=== PATIENT | female | born 1995 | race Caucasian/White ===

== ENCOUNTER → 2018-08-04 11:25 | Outpatient (CLI) | payer BC, SELFPAY ==
[2018-08-04 12:33] LABS: Absolute Lymphocyte Count 2.09 X10^3/ul (0.83-4.51); Absolute Neutrophil Count 4.5 X10^3/uL (2.0-7.7); Basophil# 0.03 X10^3/uL; Basophil% 0.4 % (0-1); Eosinophil# 0.09 X10^3/uL; Eosinophils% 1.2 % (0-5); Hematocrit 41.7 % (37-47); Hemoglobin 13.9 g/dl (12.0-15.0); Lymphocyte # 2.09 X10^3/ul (4.0); Lymphocyte % 28.2 % (19-41); Mean Corp Hgb Conc 33.3 g/gl (32-36); Mean Corpuscular Hgb 28.6 pg (27.0-32.0); Mean Corpuscular Volume 85.8 fL (81-99); Mean Platelet Vol. 9.6 fl (6.2-12.0); Monocyte# 0.68 X10^3/uL; Monocyte% 9.2 % (0-10); Neutrophil # 4.48 X10^3/uL (2.7-7.7); Neutrophil % 60.5 % (47-70); Platelet Count 413 K/mm3 (150-450); RBC Distribution Width CV 12.7 % (11.6-14.6); RBC Distribution Width SD 38.8 fl (35.1-43.9); Red Blood Count 4.86 M/mm3 (4.2-5.4); White Blood Count 7.4 K/mm3 (4.4-11.0)
[2018-08-04 12:34] LABS: POSITIVE COUNT NO; POSITIVE DIFFERENTIAL NO; POSITIVE MORPHOLOGY NO
[2018-08-04 12:49] LABS: Anion Gap 5 (5-15); BUN 13 mg/dL (7-18); BUN/Creat Ratio 16.2 RATIO (10-20); Calcium,Total 9.1 mg/dL (8.5-10.1); Chloride 103 mmol/L (98-107); EST Glomerular Filtration Rate 93 mL/min (>60); Est Glom Filt Rate - Afr Amer 112 mL/min (>60); Glucose 106 mg/dL (74-106); Potassium 3.9 mmol/L (3.5-5.1); Sodium Level 136 mmol/L (136-145)
== END ==
PROVIDERS: Visit Provider Family Medicine Geriatric Medicine
DX: I10 Essential (primary) hypertension (principal)
CPT/HCPCS: 36415; 80048; 85025

== ENCOUNTER → 2018-08-08 08:43 | Outpatient (CLI) | payer BC, SELFPAY ==
--- NOTE | 2018-08-08 08:48 | RDU_ITS ---
Reason For Study: HYPERTENSION Right Renal Artery Left Renal Artery Right renal artery ostium Left renal artery ostium 173.3/63.5 149.8/43.9 RSV/EDV. PSV/EDV. Right renal artery proximal Left renal artery proximal PSV/EDV 161.4/51.4 PSV/EDV. 169.4/47.8 . Right renal artery mid 145.3/38.9 Left renal artery mid 152.7/68.6 PSV/EDV. PSV/EDV . Right Renal Parenchyma Left renal artery distal 142.2/49.0 Upper Pole Medula 43.0/12.3 PSV/EDV. PSV/EDV. Left Renal Parenchyma Right upper pole medulla EDR .29 . Left upper pole medulla 69.1/31.8 Right upper pole medulla R.I. .71 . PSV/EDV . Upper [place] Cortx 33.1/12.3 PSV/EDV. Left upper pole medulla EDR .46 . Right upper pole cortex EDR .37 . Left upper pole medulla R.I. .54 . Right upper pole cortex R.I. .63 . UP Cortex 43.0/16.7 PSV/EDV. Right lower Pole medulla 40.8/15.6 Left upper pole cortex EDR .39 . PSV/EDV . Left upper pole cortex R.I. .61 . Right lower pole medulla EDR .38 . Left lower Pole medulla 54.0/20.0 Right lower pole medulla R.I. .62 . PSV/EDV . Lower Pole Cortex 48.5/18.9 Left lower pole medulla EDR .37 . PSV/EDV. Left lower pole medulla R.I. .63 . Right lower pole cortex EDR .39 . Lower Pole Cortx 43.0/16.7 PSV/EDV. Right lower pole cortex R.I. .61 . Left lower pole cortex EDR .39 . Right Renal Hilar Left Renal Hilar Right Hilar avg 94.1/40.8 PSV/EDV. LT Hilar avg 123.2/35.9 PSV/EDV . Right hilar acceleration time 20 Left hilar acceleration time 50 m/sec. m/sec. Right Renal Dimensions Left Renal Dimensions Right kidney size 9.6 cm . Left kidney size 9.6 cm . Right cortical dimension 1.5 cm . Left cortical dimension 1.5 cm . Aorta Proximal abdominal aorta 1.1 X 1.1 cm . Distal abdominal aorta 1.0 X 1.0 cm . Proximal abdominal aorta peak systolic velocity is 177.4 cm/sec . Distal abdominal aorta peak systolic velocity is 228.4 cm/sec . Interpretation Summary Dimensions of the intra-abdominal aorta appear normal, without evidence of aneurysmal dilatation. Renal artery velocities are bilaterally normal. Acceleration times are normal bilaterally. There is no evidence of hemodynamically significant renal artery stenosis on either side. Renovascular resistance appears to be bilaterally normal . Cortical dimensions are bilaterally normal. Kidneys appear normal in size bilaterally. Ordering Physician: Ralph Thompson Referring Physician: Ralph Thompson Chi Performed By: Fide Mcdonnell RVT
== END ==
PROVIDERS: Family Provider Family Medicine Geriatric Medicine; PCP Family Medicine Geriatric Medicine; Referring Provider Family Medicine Geriatric Medicine; Visit Provider Family Medicine Geriatric Medicine
DX: I70.1 Atherosclerosis of renal artery (principal); N20.0 Calculus of kidney; I10 Essential (primary) hypertension
CPT/HCPCS: 93975

== ENCOUNTER → 2018-08-09 | Outpatient (CLI) | payer BC, SELFPAY ==
--- NOTE | 2018-08-09 12:54 | US_ITS ---
STUDY: RENAL ULTRASOUND - COMPLETE REASON FOR EXAM: Female, 23 years old. Hypertension TECHNIQUE: Ultrasound evaluation of the kidneys was performed with real-time and static mederos-scale imaging. COMPARISON: Renal artery duplex 08/08/2018. FINDINGS: RIGHT KIDNEY: 9.7 x 5.3 x 3.8 cm. Normal cortical thickness 1.6 cm, normal cortical echotexture. Right ureteral jet is observed within the urinary bladder. LEFT KIDNEY: 10.8 x 4.5 x 5.5 cm. Normal cortical thickness 1.4 cm, normal cortical echotexture. Left ureteral jet is visualized within the urinary bladder. BLADDER: Distended volume 53 mL. Normal in caliber, contour and wall thickness. US/Kidney and Bladder IMPRESSION: Normal ultrasound of the kidneys and urinary bladder. Electronically Signed: Mathew Solares MD at 15:15 EDT Tel , Service support ,
== END | disposition home or self-care (01) ==
LOC: US 12:54
PROVIDERS: Family Provider Family Medicine Geriatric Medicine; PCP Family Medicine Geriatric Medicine; Referring Provider Family Medicine Geriatric Medicine; Visit Provider Family Medicine Geriatric Medicine
DX: I10 Essential (primary) hypertension (principal); I70.1 Atherosclerosis of renal artery; N20.0 Calculus of kidney
CPT/HCPCS: 76770

== ENCOUNTER → 2018-10-09 11:54 | Outpatient (CLI) | payer BC, SELFPAY | PROVIDERS: Family Provider Family Medicine Geriatric Medicine; PCP Family Medicine Geriatric Medicine; Visit Provider Family Medicine Geriatric Medicine | DX: N39.0 Urinary tract infection, site not specified (principal) | CPT/HCPCS: 87077; 87086; 87088; 87186 ==

== ENCOUNTER → 2018-10-24 | Outpatient (CLI) | payer BC, SELFPAY ==
[2018-10-24 14:47] LABS: hCG Titer Quant., Serum 6119 mIU/mL (1-3)
== END | disposition home or self-care (01) ==
LOC: POLAB3 13:23
PROVIDERS: Family Provider Family Medicine Geriatric Medicine; PCP Family Medicine Geriatric Medicine; Visit Provider Family Medicine Geriatric Medicine
DX: N93.8 Other specified abnormal uterine and vaginal bleeding (principal)
CPT/HCPCS: 36415; 84702

== ENCOUNTER → 2018-11-03 17:14 | Outpatient (CLI) | payer BC, SELFPAY ==
[2018-11-03 18:50] LABS: Chlamydia Trachomatis by PCR Negative (Negative); Neisserai gonorrhoeae by PCR Negative (Negative); Probe Check PASS; Sample Adequacy Control PASS; Specimen Processing Control PASS
[2018-11-08 14:45] LABS: HPV Reflexed? NOT INDICATED
== END ==
PROVIDERS: Family Provider Family Medicine Geriatric Medicine; PCP Family Medicine Geriatric Medicine; Referring Provider Obstetrics & Gynecology; Visit Provider Obstetrics & Gynecology
DX: Z12.4 Encounter for screening for malignant neoplasm of cervix (principal); Z11.3 Encounter for screening for infections with a predominantly sexual mode of transmission
CPT/HCPCS: 87491; 87591; 87624; 88175; G0145

== ENCOUNTER → 2018-11-15 | Outpatient (CLI) | payer BC, SELFPAY ==
[2018-11-15 17:24] LABS: Absolute Lymphocyte Count 2.57 X10^3/uL (0.83-4.51); Absolute Neutrophil Count 7.2 X10^3/uL (2.0-7.7); Basophil# 0.04 X10^3/uL; Basophil% 0.4 % (0-1); Eosinophils% 0.9 % (0-5); Lymphocyte # 2.57 X10^3/ul (4.0); Lymphocyte % 23.4 % (19-41); Mean Corp Hgb Conc 34.1 g/dL (32-36); Mean Corpuscular Hgb 29.9 pg (27.0-32.0); Mean Corpuscular Volume 87.6 fL (81-99); Mean Platelet Vol. 9.4 fl (6.2-12.0); Monocyte# 0.95 X10^3/uL; Monocyte% 8.7 % (0-10); NRBC Flagged by Analyzer 0 % (0-5); Neutrophil # 7.23 X10^3/uL (2.7-7.7); Neutrophil % 65.9 % (47-70); Platelet Count 370 K/mm3 (150-450); RBC Distribution Width CV 12.9 % (11.6-14.6); RBC Distribution Width SD 41.2 fl (35.1-43.9); Red Blood Count 4.68 M/mm3 (4.2-5.4)
[2018-11-15 17:31] LABS: Color, Urine Yellow (Yellow); Glucose, Dipstick Normal (Normal); Ketone-Dipstick Negative (Negative); Nitrite-Dipstick Negative (Negative); Occult Blood-Urine Negative /ul (Negative); Protein-Dipstick Negative (Negative); Urine Bilirubin Dipstick Negative (Negative); Urine Clarity Clear (Clear)
[2018-11-15 17:38] LABS: Amphetamine Urine VISTA NEGATIVE (<1000 ng/mL); Barbiturate Urine VISTA NEGATIVE (< 200 ng/mL); Benzodiazepine Urine VISTA NEGATIVE (< 200 ng/mL); Cocaine Urine VISTA NEGATIVE (< 300 ng/mL); Ecstacy Urine VISTA NEGATIVE (< 500 ng/mL); Methadone Urine VISTA NEGATIVE (< 300 ng/mL); PCP Urine VISTA NEGATIVE (< 25 ng/mL); THC Urine VISTA NEGATIVE (< 50 ng/mL); Vista UDS pH Range 6
[2018-11-15 17:54] LABS: Thyroid Stim Hormone (TSH) 1.46 uIU/mL (0.358-3.74)
[2018-11-15 18:52] LABS: Leukocyte Esterase-Dipstick Negative /ul (Negative); Specific Gravity, Urine 1.015 (1.002-1.030); Urine Urobilinogen 1 mg/dl (Normal)
[2018-11-16 11:48] LABS: HIV - WCH Non-Reactive (Nonreactive); Hepatitis B Surface Antigen Non-Reactive (Nonreactive); Hepatitis C Antibody Non-Reactive (Nonreactive); Rubella IgG 7.2 IU/mL
[2018-11-17 04:46] LABS: Prenatal RPR NONREACTIVE (NONREACTIVE)
== END | disposition home or self-care (01) ==
LOC: WOBLAB 16:33
PROVIDERS: Visit Provider Obstetrics & Gynecology
DX: Z34.81 Encounter for supervision of other normal pregnancy, first trimester (principal)
CPT/HCPCS: 36415; 80307; 81002; 84443; 85025; 86703; 86762; 86803; 87340

== ENCOUNTER → 2019-03-28 08:46 | Outpatient (CLI) | payer BC, SELFPAY ==
[2019-03-28 09:23] LABS: Glucose Challenge Gest 1H 50g 162 mg/dL (70-140)
[2019-03-28 09:25] LABS: Hematocrit 34.2 % (37-47); Hemoglobin 11.4 g/dL (12.0-15.0); Mean Corp Hgb Conc 33.3 g/dL (32-36); Mean Corpuscular Hgb 29.7 pg (27.0-32.0); Mean Corpuscular Volume 89.1 fL (81-99); Mean Platelet Vol. 9.5 fl (6.2-12.0); Platelet Count 350 K/mm3 (150-450); RBC Distribution Width CV 12.5 % (11.6-14.6); RBC Distribution Width SD 40.7 fl (35.1-43.9); Red Blood Count 3.84 M/mm3 (4.2-5.4)
== END ==
PROVIDERS: Visit Provider Obstetrics & Gynecology
DX: Z34.83 Encounter for supervision of other normal pregnancy, third trimester (principal)
CPT/HCPCS: 36415; 82950; 85027

== ENCOUNTER → 2019-04-02 06:54 | Outpatient (CLI) | payer BC, SELFPAY ==
[2019-04-02 08:34] LABS: Glucose GTT-Gestational 1 Hr 197 mg/dL (<190)
[2019-04-02 08:36] LABS: Glucose GTT-Gestation. Fasting 97 mg/dL (<105)
[2019-04-02 09:58] LABS: Glucose GTT-Gestational 2 Hr 156 mg/dL (<165)
[2019-04-02 11:40] LABS: Glucose GTT-Gestational 3 Hr 119 L (<145)
== END ==
PROVIDERS: Family Provider Family Medicine Geriatric Medicine; PCP Family Medicine Geriatric Medicine; Referring Provider Obstetrics & Gynecology; Visit Provider Obstetrics & Gynecology
DX: O24.913 Unspecified diabetes mellitus in pregnancy, third trimester (principal)
CPT/HCPCS: 36415; 82951; 82952

== ENCOUNTER → 2019-06-01 | Outpatient (CLI) | payer BC, SELFPAY | END | disposition home or self-care (01) | LOC: LABSPEC 15:55 | PROVIDERS: PCP Family Medicine Geriatric Medicine; Referring Provider Obstetrics & Gynecology; Visit Provider Obstetrics & Gynecology | DX: Z36.85 Encounter for antenatal screening for Streptococcus B (principal) | CPT/HCPCS: 87081 ==

== ENCOUNTER → 2019-06-12 10:21 | Outpatient (CLI) | payer BC, SELFPAY ==
[2019-06-12 10:50] LABS: Hemoglobin 11.8 g/dL (12.0-15.0); Mean Corp Hgb Conc 31.9 g/dL (32-36); Mean Corpuscular Hgb 26.6 pg (27.0-32.0); Mean Corpuscular Volume 83.3 fL (81-99); Mean Platelet Vol. 9.8 fl (6.2-12.0); Platelet Count 300 K/mm3 (150-450); RBC Distribution Width CV 14.2 % (11.6-14.6); RBC Distribution Width SD 42.2 fl (35.1-43.9); Red Blood Count 4.44 M/mm3 (4.2-5.4); White Blood Count 7.6 K/mm3 (4.4-11.0)
[2019-06-12 10:59] LABS: Prothrombin Time (Protime)PT. 12.5 SECONDS (11.7-14.9)
[2019-06-12 11:00] LABS: Partial Thromboplast Time 27.6 Seconds (24.1-36.2)
[2019-06-12 11:16] LABS: Protein, Urine (Random) 38.2 mg/dL (<11.9)
[2019-06-12 11:21] LABS: AST(SGOT) 20 U/L (15-37); Alanine Aminotransfer ALT/SGPT 13 U/L (13-56); Creatinine, Serum 0.76 mg/dL (0.55-1.02); EST Glomerular Filtration Rate 98 mL/min (>60); Est Glom Filt Rate - Afr Amer 118 mL/min (>60); Uric Acid 4.2 mg/dL (2.6-6.0)
== END ==
PROVIDERS: PCP Family Medicine Geriatric Medicine; Visit Provider Obstetrics & Gynecology
DX: O16.3 Unspecified maternal hypertension, third trimester (principal); Z3A.00 Weeks of gestation of pregnancy not specified
CPT/HCPCS: 36415; 82565; 82570; 84156; 84450; 84460; 84550; 85027; 85610; 85730

== ENCOUNTER 2019-06-12 18:50 | Inpatient (IN) | payer BC, SELFPAY ==
[2019-06-12] VITALS (14 sets, daily range): BP systolic 134–182; BP diastolic 68–100; PULSE 61–80; TEMP 97.8–98.4; O2SAT 95–98; BMI 29.9
[2019-06-12] MEDS: Lactated Ringers 1,000 ML 50 ML IV (20:10)
[2019-06-12 20:50] LABS: Absolute Lymphocyte Count 2.51 X10^3/uL (0.83-4.51); Absolute Neutrophil Count 5.9 X10^3/uL (2.0-7.7); Basophil# 0.01 X10^3/uL; Basophil% 0.1 % (0-1); Eosinophil# 0.06 X10^3/uL; Eosinophils% 0.6 % (0-5); Hematocrit 34.9 % (37-47); Hemoglobin 11.2 g/dL (12.0-15.0); Lymphocyte # 2.51 X10^3/ul (4.0); Lymphocyte % 26.8 % (19-41); Mean Corp Hgb Conc 32.1 g/dL (32-36); Mean Corpuscular Hgb 26.5 pg (27.0-32.0); Mean Corpuscular Volume 82.7 fL (81-99); Mean Platelet Vol. 10.2 fl (6.2-12.0); Monocyte# 0.78 X10^3/uL; Monocyte% 8.3 % (0-10); NRBC Flagged by Analyzer 0 % (0-5); Neutrophil # 5.93 X10^3/uL (2.7-7.7); Neutrophil % 63.6 % (47-70); Platelet Count 311 K/mm3 (150-450); RBC Distribution Width CV 14.3 % (11.6-14.6); RBC Distribution Width SD 42.5 fl (35.1-43.9); Red Blood Count 4.22 M/mm3 (4.2-5.4); White Blood Count 9.4 K/mm3 (4.4-11.0)
[2019-06-12] MEDS: Oxytocin 30 units/NS 500 ml 30 UNITS/500 ML IV.SOLN IV (21:11)
--- NOTE | 2019-06-12 21:41 | PCM.HP.OB ---
- Problem List (1) 38 weeks gestation of Status: Acute (2) Chronic hypertension Status: Chronic History Date of Admission: 06/12/19 Final ANDI: 06/24/19 Final ANDI Source: US <20 weeks Gestational age: 38 Weeks and 2 Days History of this : This is a 24 year-old, G [], P [], at 38 weeks gestational age. Medical History: Medical History (Last Updated 06/12/19 @ 21:[address] Kristie Mata MD) Chronic hypertension I10 Surgical History: Surgical History (Last Updated 06/12/19 @ 21:[address] Kristie Mata MD) [place] teeth extracted K08.409 Allergies lisinopril Allergy (Verified 06/12/19 19:45) Other causes her heart to race Home Medications: Home Medications Labetalol [Trandate] 100 mg PO BID 06/12/19 Pnv No.103/Folic/Om3s/Fish Oil [ Gummies] 2 ea PO DAILY 06/12/19 Smoking Status: Never smoker Alcohol: None Number of Fetus(es): 1 NST - FHR Rate Baby A Baseline: 135 Variability:: Moderate Accelerations:: 15 x 15 Decelerations:: None NST Reactive:: Yes FHR Category:: Category I Uterine Activity:: 2/10 History Past Pregnancies: Past Pregnancies Delivery Date Name GA/ Weeks Outcome Route Wt Infant Sex Labor Length Anesthesia Delivery Location Provider FOB Labs: Mom's Problem List Problem Status Onset Code 38 weeks gestation of Acute Z3A.38 Chronic hypertension Chronic I10 Mom's Labs & Results 06/12/19 06/12/19 20:10 20:10 WBC 9.4 RBC 4.22 Hgb 11.2 L Hct 34.9 L MCV 82.7 MCH 26.5 L MCHC 32.1 RDW Std Deviation 42.5 RDW Coeff of Sofia 14.3 Plt Count 311 MPV 10.2 Immature Gran % (Auto) 0.600 Neut % (Auto) 63.6 Lymph % (Auto) 26.8 [place] % (Auto) 8.3 Eos % (Auto) 0.6 Baso % (Auto) 0.1 Absolute Neuts (auto) 5.9 Absolute Lymphs (auto) 2.51 Nucleated RBC % 0 Blood Type O POSITIVE Antibody Screen NEGATIVE Course Did the patient receive Yes care? Labs Blood Type: O RH: POSITIVE RPR/VDRL/Syphilis Nonreactive Rubella status Equivocal HbSAg Negative Date Done: 11/15/18 Chlamydia Negative Gonorrhea Negative HIV/AIDS Non-Reactive Group B Strep: Negative Current Obstetrical History Gestational Diabetes No Incompetent Cervix No Infertility No IUGR No Macrosomia No Hypertension/Pre-eclampsia Yes: chronic htn Placenta Previa/Abruption No PTL/PROM No Uterine anomaly No Oligohydramnios No Polyhydramnios No Multiple gestation No Past Medical History Asthma No Diabetes No Hypertension Yes: chronic htn Heart disease No Mitral valve prolapse No Neurologic/Seizure disorder/ No Migraines Kidney disease No Liver disease No Varicosities No Clotting disorders/Hx of DVT No Thyroid Dysfunction No Other medical diseases No Psychiatric disorders No Major trauma No Abnormal PAP smear No Sleep apnea No Mammogram in the last 2 years No Social History Marital Status: Alleged father jian santos Hx Smoking No Smoking Status Never smoker Expected Delivery Method: Spontaneous Vaginal Number of Visits: 20 Review of Systems Eyes: Denies: Vision Change HEENT: Denies: Head Aches Cardiovascular: Denies: Chest Pain Respiratory: Denies: Shortness of Breath Gastrointestinal: Denies: Abdominal Pain, Nausea, Vomiting Gynecological: Denies: Vaginal bleeding Physical Exam Vitals: avss General: Alert, Oriented x3, Cooperative, No apparent distress HEENT: Atraumatic, Normocephalic Cardiovascular: Regular Rhythm Lungs: Clear to auscultation, Normal air movement Abdomen: Soft, Non Tender, Non-Distended, Gravid Neurological: Neuro grossly intact [employer] REPA[employer]ER: Normal external genitalia Estimated gestational size: Appropriate for gestational size Presentation: Cephalic Cervix Dilation (cm): 3 Station: -2 Effacement (%): 75 Assessment/Plan All Active Problems (Last Updated 06/12/19 @ 21:[address] Kristie Mata MD) 38 weeks gestation of (Acute) This is a 24 year-old, G [1], P [], at 38 2/7 weeks gestational age. hx chronic hypertension Start pitocin for IOL Consents signs and reviewed
[2019-06-12] MEDS: Labetalol 100 MG Tablet PO (21:51)
[2019-06-12] MEDS: Mag Hydrox/Al Hydrox/Simeth 30 ML UDC PO (22:00)
[2019-06-13] VITALS (24 sets, daily range): BP systolic 118–156; BP diastolic 63–91; PULSE 35–177; RESP 16–18; TEMP 36.6–36.8; O2SAT 83–100
[2019-06-13] MEDS: fentaNYL 100 MCG/2 ML Ampul IV (02:07)
[2019-06-13] MEDS: Lactated Ringers 500 ML 999 ML IV (02:33)
--- NOTE | 2019-06-13 04:10 | PCM.PN.BLA ---
Progress Note LABOR PROGRESS NOTE C/o painful contractions. AVSS gen - nad, aao x3 FHR 130, moderate variability, + acceleations, + variable deceleration TOCO 3-4/10 min SVE 7/90/-2 A/P: 24yo G1 @ 38 3/7wga, hx chronic hypertension, Cat II FHR -Amniotomy performed with clear fluid -Maternal and statuses reassuring
[2019-06-13] MEDS: Oxytocin 30 units/NS 500 ml 30 UNITS/500 ML IV.SOLN 334 UNITS IV (04:35)
--- NOTE | 2019-06-13 05:18 | PLAC_PTH ---
PATIENT: ROMY HOLMAN LOC: WP U#:[id number] AGE/SX: 24/F ROOM: WP008 RE06/12/[address]: Dr. Kristie Joy MD : 1995 BED: 1 DIS: 06/14/2019 SPEC #: [id number] RECD: 06/13/19 06:09 STATUS: FAREED REDylan #: [id number] ITZ: 06/13/19 05:[address]: Kristie Chapa DEPT: SURGICAL PATHOLOGY RECD BY: Augustine Gaviria ENTERED: 06/13/19 09:18 SP TYPE: PLACENTA OTHR DR: MD Dr. Ralph Fisher Chi, MD Tissues: Placenta, NOS Procedures: Surgery Specimen Level V HEADER OPERATION: Vaginal delivery PRE-OP DIAGNOSIS: Chronic hypertension, TISSUE SUBMITTED: Placenta MICROSCOPIC DIAGNOSIS Placenta: Placental disc - third trimester placenta (427 gm). -?Focal area of intraparenchymal hemorrhage (1.5 cm in greatest dimension). -?Focal area of increased intervillous and perivillous fibrin deposition and intraparenchymal hemorrhage (1 cm in greatest dimension). Membranes - no pathologic diagnosis. Umbilical cord - three blood vessels and no pathologic diagnosis. SJ:keshia 06/15/19 MICROSCOPIC DESCRIPTION Slides are reviewed. GROSS DESCRIPTION SPECIMEN: PLACENTA / CLINICAL INFORMATION: A. Weight: 2.874 kg B. Gestational Age: 38 weeks C. Sex: Female PLACENTAL WEIGHT (POST FIXATION): 427 gm PLACENTAL DIMENSIONS: 16 x 15 x 3 cm PLACENTAL SHAPE: Usual ovoid PLACENTAL WEIGHT FOR GESTATIONAL AGE: Within 10-99th percentile MEMBRANES - Present A. Insertion: Marginal B. Site of rupture from edge: 7 cm from edge of placental disc C. Color of membrane: Rivas[place]pena D. Abnormalities: None UMBILICAL CORD - Present A. Color: Rivas[place]pena B. Insertion: Central C. Length: 29 cm D. Diameter: 1 cm E. Number of vessels: Three F. Abnormalities: Increased spiraling is noted. PLACENTAL DISC - Present A. Color of surface: R[place] B. surface abnormalities: None C. Maternal cotyledons: Intact with minimal tears D. Attached retro placental clot: No clot E. Cut surface: Dark red and spongy F. Lesions: Sections reveal two rivas, indurated areas measuring 1 and 1.5 cm in greatest dimension. G. Separate clot: Multiple fragments of blood clot weighing in aggregate 47 gm and measuring 8 x 7 x 3?cm. SECTIONS SUBMITTED: 1. Membrane roll 2. Cord, maternal end 3. Cord, end 4. Placental disc, and maternal surfaces 5. Placental disc, and maternal surfaces, larger lesion 6. Placental disc, and maternal surfaces, smaller lesion SJ:rg 06/15/19 TC:5 CPT: 02923
--- NOTE | 2019-06-13 05:20 | PCM.OPRPT ---
Problem List (1) 38 weeks gestation of Status: Acute (2) Chronic hypertension Status: Chronic Vaginal Delivery Maternal Presentation: Medically Indicated Induction Method of Induction: Pitocin, Amniotomy Amniotic Membrane Rupture Type: Artificial Rupture of Membrane time: 06/13/19 0400h Amniotic Fluid Description: Clear Final ANDI: 06/24/19 Final ANDI Source: US <20 weeks Gestational age: 38 Weeks and 3 Days Date of Procedure: 06/13/19 Pre-Operative Diagnosis: 38 3/7wga, chronic hypertension Post-Operative Diagnosis: 38 3/7wga, chronic hypertension Surgery/ Procedure Performed: Spontaneous Vaginal Delivery Type of Anesthesia: None Description of Procedure: Patient was FD/+ 3 station. She pushed to deliver a female in RONEY. The mouth and nares were bulb suctioned at the perineum. The was placed on the maternal abdomen and further attended by nursery personnel. The cord was doubly clamped and cut at approximately 4 minutes of life. Cord blood specimen was obtained. The placenta delivered spontaneously and appeared intact on inspection. 10cc of 1% lidocaine injected locally. A first degree perineal laceration was repaired with 3-0 Vicryl Rapide. Fundus was firm at umbilicus and there was excellent hemostasis. Sponge and needle counts correct x 2. Presentation: Vertex Placental Delivery Description: Spontaneous Placenta Disposition: Sent to Pathology Cord Vessel Description: 3 Vessels Nuchal Cord Compression: Without compression Cord Entanglement: None Estimated Blood Loss: 200 A gender: Female (1 minute): 8 (5 minute): 9 Laceration: Midline, 1st degree Medications given after delivery: IV Pitocin Complications: None
--- NOTE | 2019-06-13 05:37 | DCINST_ITS ---
<EsperanzaKristie - Last Filed: 06/13/19 05:37> Discharge Diet: No Restrictions Discharge Activity: Return to Normal Activity, May Shower, May Take a Tub Bath May resume sexual activity in: 4-6 weeks Lifting Restrictions: 10-20 lb Cleanse incision/area with: Soap & Water Instructions: Controlling High Blood Pressure Additional Instructions: If you experience any of the following, contact your healthcare provider. * Bleeding that soaks a pad every hour for 2 hours * Fever 100.4 or higher * Unrelieved incision or abdominal pain * Swelling, redness, discharge or bleeding from your incision or episiotomy site * Your incision begins to separate * Problems urinating (including inability to urinate or burning while urinating). * Visual changes * Severe headache * Flu-like symptoms * Pain or redness in one of both of your breasts * Pain, warmth, tenderness or swelling in your legs, especially the calf area * Frequent nausea and vomiting * Symptoms of depression or anxiety If you experience any of the following, call 911 or go to the nearest Emergency Room. * Chest pain * Problems breathing * Seizure activity * Partial or complete paralysis of a body part, slurred speech, weakness or drooping of the face, or a sudden inability to walk or hold your balance Allergies/Adverse Reactions: Allergies lisinopril Allergy (Verified 06/12/19 19:45) Other causes her heart to race Medications to take at Discharge Labetalol [Trandate] 100 mg PO BID 06/12/19 Pnv No.103/Folic/Om3s/Fish Oil [ Gummies] 2 ea PO DAILY 06/12/19 Please Follow Up With: Ahmet Marquez MD - BP check When: 7-10 days Primary Care Physician: Ralph Thompson Chi, MD [Primary Care Provider] - Test Results: Test results from this visit will be discussed in further detail at your follow- up appointment, if applicable. <Janina Oscar - Last Filed: 06/14/19 09:10> Additional Instructions: If you experience any of the following, contact your healthcare provider. * Bleeding that soaks a pad every hour for 2 hours * Fever 100.4 or higher * Unrelieved incision or abdominal pain * Swelling, redness, discharge or bleeding from your incision or episiotomy site * Your incision begins to separate * Problems urinating (including inability to urinate or burning while urinating). * Visual changes * Severe headache * Flu-like symptoms * Pain or redness in one of both of your breasts * Pain, warmth, tenderness or swelling in your legs, especially the calf area * Frequent nausea and vomiting * Symptoms of depression or anxiety If you experience any of the following, call 911 or go to the nearest Emergency Room. * Chest pain * Problems breathing * Seizure activity * Partial or complete paralysis of a body part, slurred speech, weakness or drooping of the face, or a sudden inability to walk or hold your balance Test Results: Test results from this visit will be discussed in further detail at your follow- up appointment, if applicable.
[2019-06-13 07:03] LABS: Pathology Specimen OB SEE PATHOLOGY REPORT
[2019-06-13] MEDS: 0.9% Saline Lock 10 ML Syringe IV (07:30)
[2019-06-13] MEDS: Ibuprofen 600 MG Tablet PO ×2 (08:23→21:47)
[2019-06-13] MEDS: Labetalol 100 MG Tablet PO ×2 (12:11→21:47)
[2019-06-14 00:20] VITALS: BP 128/61; PULSE 93; RESP 18; TEMP 37.1
[2019-06-14 04:45] VITALS: BP 131/77; PULSE 68; RESP 18; TEMP 36.7
[2019-06-14 08:16] VITALS: BP 122/68; PULSE 69; RESP 18; TEMP 36.7
--- NOTE | 2019-06-14 08:19 | NURSING ---
mild edema of perineum. Encouraged anti inflammatories
[2019-06-14] MEDS: Ibuprofen 600 MG Tablet PO (08:24)
[2019-06-14] MEDS: Senna/Docusate Sodium 1 Tablet PO (08:24)
--- NOTE | 2019-06-14 09:10 | PCM.PN.BLA ---
Progress Note S: Feeling well. Motrin is helping with mild cramps. daughter well with no concerns. Wants to discharge today. O: AVSS, BP 128/68 stable Fundus u/1, firm, midline Lochia rubra moderate, denies clots A: Post vaginal delivery day #1 female Normal course P: To discharge home today Call if any problems with To return to the office in 7-10 days for BP check. To check BP at home QD and call if elevated pressures or symptomatic Normal appt in 6 weeks STROKE Vital Signs/Narrative: Vital Signs Temp Pulse Resp BP 06/14/19 08:16 98.0 F 69 18 122/68 H
[2019-06-14] MEDS: Labetalol 100 MG Tablet PO (10:51)
[2019-06-14] MEDS: Prenatal Vits Tablet 1 TABLET PO (10:51)
[2019-06-14 14:00] VITALS: BP 130/79; PULSE 96; RESP 18; TEMP 36.7
== END 2019-06-14 14:00 | disposition home or self-care (01) | DRG 806 ==
PROVIDERS: Admitting Provider Obstetrics & Gynecology; PCP Family Medicine Geriatric Medicine; Referring Provider Obstetrics & Gynecology; Visit Provider Obstetrics & Gynecology
DX: O76 Abnormality in fetal heart rate and rhythm complicating labor and delivery (principal); O10.92 Unspecified pre-existing hypertension complicating childbirth; Z37.0 Single live birth; O36.0130 Maternal care for anti-D [Rh] antibodies, third trimester, not applicable or unspecified; O70.0 First degree perineal laceration during delivery; Z3A.38 38 weeks gestation of pregnancy
CPT/HCPCS: 59025; 59050; 76815; 85025; 86850; 86900; 86901; 88307; 99218; J7120; A4216; G0378

== ENCOUNTER → 2019-08-06 17:01 | Outpatient (CLI) | payer BC, SELFPAY ==
[2019-06-12 19:40] VITALS: BMI 29.9
[2019-08-06 17:21] LABS: Absolute Neutrophil Count 4.8 X10^3/uL (2.0-7.7); Basophil# 0.04 X10^3/uL; Basophil% 0.5 % (0-1); Eosinophil# 0.16 X10^3/uL; Eosinophils% 1.8 % (0-5); Hematocrit 39.2 % (37-47); Hemoglobin 12.4 g/dL (12.0-15.0); Lymphocyte % 30.7 % (19-41); Mean Corp Hgb Conc 31.6 g/dL (32-36); Mean Corpuscular Hgb 26.6 pg (27.0-32.0); Mean Corpuscular Volume 84.1 fL (81-99); Mean Platelet Vol. 9.3 fl (6.2-12.0); Monocyte# 1.03 X10^3/uL; Monocyte% 11.7 % (0-10); NRBC Flagged by Analyzer 0 % (0-5); Neutrophil # 4.84 X10^3/uL (2.7-7.7); Neutrophil % 55.1 % (47-70); Platelet Count 371 K/mm3 (150-450); RBC Distribution Width CV 15.4 % (11.6-14.6); RBC Distribution Width SD 47.3 fl (35.1-43.9); Red Blood Count 4.66 M/mm3 (4.2-5.4); White Blood Count 8.8 K/mm3 (4.4-11.0)
[2019-08-06 17:37] LABS: Anion Gap 5 (5-15); BUN 12 mg/dL (7-18); BUN/Creat Ratio 15.2 RATIO (10-20); Chloride 110 mmol/L (98-107); Creatinine, Serum 0.79 mg/dL (0.55-1.02); EST Glomerular Filtration Rate 94 mL/min (>60); Est Glom Filt Rate - Afr Amer 114 mL/min (>60); Glucose 89 mg/dL (74-106); Potassium 3.7 mmol/L (3.5-5.1); Sodium Level 141 mmol/L (136-145)
== END ==
PROVIDERS: PCP Family Medicine Geriatric Medicine; Referring Provider Family Medicine Geriatric Medicine; Visit Provider Family Medicine Geriatric Medicine
DX: I10 Essential (primary) hypertension (principal)
CPT/HCPCS: 36415; 80048; 85025

== ENCOUNTER → 2020-04-16 | Outpatient (CLI) | payer BC, SELFPAY ==
[2019-06-12 19:40] VITALS: BMI 29.9
[2020-04-16 18:06] LABS: Probe Check PASS; Specimen Processing Control PASS
== END | disposition home or self-care (01) ==
LOC: LABSPEC 16:34
PROVIDERS: PCP Family Medicine Geriatric Medicine; Visit Provider Family Medicine Geriatric Medicine
DX: R68.83 Chills (without fever) (principal)
CPT/HCPCS: 87633; 87635; U0002

== ENCOUNTER → 2020-09-23 | Outpatient (CLI) | payer BC, SELFPAY ==
[2019-06-12 19:40] VITALS: BMI 29.9
[2020-09-26 03:07] LABS: Chlamydia By Nucleic Acid AMP Negative (Negative)
[2020-09-26 08:04] LABS: Gonococcus By Nucleic Acid AMP Negative (Negative)
[2020-09-30 10:55] LABS: HPV Reflexed? NOT INDICATED
== END | disposition home or self-care (01) ==
LOC: LABSPEC 16:36
PROVIDERS: PCP Family Medicine Geriatric Medicine; Visit Provider Obstetrics & Gynecology
DX: Z12.4 Encounter for screening for malignant neoplasm of cervix (principal); Z11.3 Encounter for screening for infections with a predominantly sexual mode of transmission
CPT/HCPCS: 87491; 87591; 88175; G0145

== ENCOUNTER → 2020-10-08 16:01 | Outpatient (CLI) | payer BC, SELFPAY ==
[2019-06-12 19:40] VITALS: BMI 29.9
[2020-10-08 16:05] LABS: Mucous, Urine 0 SEEN /hpf (<or=2+); Squamous Epithelial Cells - UA 0 SEEN /hpf (5-10)
[2020-10-08 16:22] LABS: Color, Urine Yellow (Yellow); Glucose, Dipstick Normal (Normal); Ketone-Dipstick 15 mg/dl (Negative); Leukocyte Esterase-Dipstick 25 /ul (Negative); Nitrite-Dipstick Negative (Negative); Occult Blood-Urine 10 /ul (Negative); Protein-Dipstick Negative (Negative); Urine Bilirubin Dipstick Negative (Negative); Urine Clarity Turbid (Clear); Urine Urobilinogen Normal (Normal)
[2020-10-08 16:23] LABS: Absolute Lymphocyte Count 2.11 X10^3/uL (0.83-4.51); Absolute Neutrophil Count 8.2 X10^3/uL (2.0-7.7); Basophil# 0.04 X10^3/uL; Basophil% 0.4 % (0-1); Eosinophil# 0.11 X10^3/uL; Hematocrit 38.6 % (37-47); Lymphocyte # 2.11 X10^3/ul (0.83-4.51); Lymphocyte % 18.5 % (19-41); Mean Corp Hgb Conc 33.7 g/dL (32-36); Mean Corpuscular Hgb 29.5 pg (27.0-32.0); Mean Corpuscular Volume 87.7 fL (81-99); Mean Platelet Vol. 9.2 fl (6.2-12.0); Monocyte# 0.87 X10^3/uL; Monocyte% 7.6 % (0-10); NRBC Flagged by Analyzer 0 % (0-5); Neutrophil % 72.1 % (47-70); Platelet Count 370 K/mm3 (150-450); RBC Distribution Width CV 12.9 % (11.6-14.6); RBC Distribution Width SD 41.4 fl (35.1-43.9); White Blood Count 11.4 K/mm3 (4.4-11.0)
[2020-10-08 16:25] LABS: Protein, Urine (Random) 22.2 mg/dL (<11.9); Protein:Creat Ratio 83 mg/g CRE (0-200)
[2020-10-08 16:28] LABS: Amorphous Sediment 4+; Bacteria 2+ /hpf (None Seen); Red Blood Cells-Urine 0-5 SEEN /hpf (0-5); White Blood Cells 0-5 SEEN /hpf (0-5)
[2020-10-08 16:45] LABS: ALB/GLOB Ratio 0.8 RATIO (0.9-2.4); AST(SGOT) 15 U/L (15-37); Alanine Aminotransfer ALT/SGPT 16 U/L (13-56); Albumin, Serum 3.8 g/dL (3.2-5.0); Alkaline Phosphatase 67 U/L (45-117); Anion Gap 8 (5-15); BUN 13 mg/dL (7-18); BUN/Creat Ratio 19.7 RATIO (10-20); Calcium,Total 9.2 mg/dL (8.5-10.1); Chloride 103 mmol/L (98-107); Creatinine, Serum 0.66 mg/dL (0.55-1.02); EST Glomerular Filtration Rate 114 mL/min (>60); Est Glom Filt Rate - Afr Amer 138 mL/min (>60); Globulin 4.5 g/dL (2.2-4.2); Glucose 82 mg/dL (74-106); LDH 156 U/L (84-246); Potassium 3.4 mmol/L (3.5-5.1); Protein, Total 8.3 g/dL (6.4-8.2); Sodium Level 135 mmol/L (136-145)
[2020-10-09 09:54] LABS: HIV - WCH Non-Reactive (Nonreactive); Hepatitis B Surface Antigen Non-Reactive (Nonreactive); Hepatitis C Antibody Non-Reactive (Nonreactive); Rubella IgG Reactive (Nonreactive); Syphilis Antibodies Non-reactive
== END ==
PROVIDERS: PCP Family Medicine Geriatric Medicine; Visit Provider Obstetrics & Gynecology
DX: Z34.81 Encounter for supervision of other normal pregnancy, first trimester (principal)
CPT/HCPCS: 36415; 80053; 81001; 82570; 83615; 84156; 85025; 86703; 86762; 86780; 86803; 87086; 87340

== ENCOUNTER → 2020-12-04 09:01 | Outpatient (CLI) | payer BC, SELFPAY ==
[2020-12-04 12:16] LABS: Probe Check PASS; Specimen Processing Control PASS
== END ==
PROVIDERS: PCP Family Medicine Geriatric Medicine; Referring Provider Family Medicine Geriatric Medicine; Visit Provider Family Medicine Geriatric Medicine
DX: U07.1 COVID-19 (principal)
CPT/HCPCS: 87635; C9803; U0005; U0003

== ENCOUNTER → 2021-02-18 09:12 | Outpatient (CLI) | payer BC, SELFPAY ==
[2021-02-27 22:09] LABS: Lyme IgG P18 Ab Absent (.); Lyme IgG P23 Ab Absent (.); Lyme IgG P28 Ab Absent (.); Lyme IgG P30 Ab Absent (.); Lyme IgG P39 Ab Absent (.); Lyme IgG P41 Ab Absent (.); Lyme IgG P45 Ab Absent (.); Lyme IgG P58 Ab Absent (.); Lyme IgG P66 Ab Absent (.); Lyme IgG P93 Ab Absent (.); Lyme IgM P23 Ab Absent (.); Lyme IgM P39 Ab Present (.); Lyme IgM P41 Ab Absent (.)
[2021-02-28 08:02] LABS: Lyme IgG WB Interpretation Negative (.); Lyme IgM WB Interpretation Negative (.)
== END ==
PROVIDERS: PCP Family Medicine Geriatric Medicine; Visit Provider Family Medicine Geriatric Medicine
DX: A69.20 Lyme disease, unspecified (principal)
CPT/HCPCS: 36415; 86617

== ENCOUNTER → 2021-02-20 14:00 | Outpatient (CLI) | payer BC, SELFPAY ==
[2021-02-20 15:22] LABS: Hematocrit 31.2 % (37-47); Hemoglobin 10.2 g/dL (12.0-15.0); Mean Corp Hgb Conc 32.7 g/dL (32-36); Mean Corpuscular Hgb 29.2 pg (27.0-32.0); Mean Corpuscular Volume 89.4 fL (81-99); Mean Platelet Vol. 9.6 fl (6.2-12.0); Platelet Count 312 K/mm3 (150-450); RBC Distribution Width CV 12.8 % (11.6-14.6); RBC Distribution Width SD 41.7 fl (35.1-43.9); Red Blood Count 3.49 M/mm3 (4.2-5.4); White Blood Count 9.4 K/mm3 (4.4-11.0)
[2021-02-20 15:30] LABS: Glucose Challenge Gest 1H 50g 146 mg/dL (70-140)
== END ==
PROVIDERS: PCP Family Medicine Geriatric Medicine; Visit Provider Obstetrics & Gynecology
DX: Z34.83 Encounter for supervision of other normal pregnancy, third trimester (principal)
CPT/HCPCS: 36415; 82950; 85027

== ENCOUNTER → 2021-03-06 06:56 | Outpatient (CLI) | payer BC, SELFPAY ==
[2021-03-06 08:22] LABS: Glucose GTT-Gestation. Fasting 105 mg/dL (<105)
[2021-03-06 10:16] LABS: Glucose GTT-Gestational 1 Hr 196 mg/dL (<190)
[2021-03-06 10:16] LABS: Glucose GTT-Gestational 2 Hr 162 mg/dL (<165)
[2021-03-06 11:46] LABS: Glucose GTT-Gestational 3 Hr 145 L (<145)
== END ==
PROVIDERS: PCP Family Medicine Geriatric Medicine; Visit Provider Obstetrics & Gynecology
DX: O24.912 Unspecified diabetes mellitus in pregnancy, second trimester (principal); Z3A.00 Weeks of gestation of pregnancy not specified
CPT/HCPCS: 36415; 82951; 82952

== ENCOUNTER 2021-04-14 10:08 | Outpatient (CLI) | payer BC, SELFPAY | END 2021-04-14 23:59 | disposition short-term general hospital (02) | LOC: LABSPEC 10:09 | PROVIDERS: PCP Family Medicine Geriatric Medicine; Visit Provider Obstetrics & Gynecology | DX: Z36.85 Encounter for antenatal screening for Streptococcus B (principal) | CPT/HCPCS: 87081 ==

== ENCOUNTER 2021-05-02 01:05 | Inpatient (IN) | payer BC, SELFPAY ==
[2021-05-02] VITALS (42 sets, daily range): BP systolic 113–154; BP diastolic 56–90; PULSE 61–100; RESP 16–18; TEMP 36.2–37.1; O2SAT 97–100; BMI 29.4
[2021-05-02] MEDS: Oxytocin 10 UNITS/ML Vial IM (01:17)
--- NOTE | 2021-05-02 01:38 | EX.PCM.OBRPT ---
Assessment & Plan (1) 38 weeks gestation of : (2) Chronic hypertension: (3) Gestational diabetes mellitus: Maternal Data Information Final ANDI: 05/11/21 Vaginal Delivery Maternal Presentation Maternal Presentation: Active Labor Operative Information Date of Procedure: 05/02/21 Pre-Operative Diagnosis: 1. 38 5/7 weeks gestation 2. Gestational diabetes 3. Chronic hypertension Post-Operative Diagnosis: 1. 38 5/7 weeks gestation 2. Gestational diabetes 3. Chronic hypertension Surgery / Procedure Performed: Spontaneous Vaginal Delivery Type of Anesthesia: None Estimated Blood Loss: 100 ml Time of Delivery: 01:15 Findings Description of Procedure: Patient was fully dilated and +4 station on my arrival. She pushed and amniotomy was performed with delivery of the head revealing clear fluid. The mouth and nares were bulb suctioned at the perineum. The infant shoulders delivered with ease revealing a vigorous male . was placed on the maternal abdomen and further attended by nursery personnel. The cord was doubly clamped and cut at 4 minutes of life. The cord gas specimen was obtained. The placenta delivered spontaneously and appeared intact on inspection. The perineum was intact. Sponge counts correct x2. Presentation: Vertex Amniotic Membrane Rupture Type: Artificial Time of Membrane Rupture: 0014h 05/02/21 Amniotic Fluid Description: Clear Cord Vessel Description: 3 Vessels Cord Entanglement: None A Gender: Male (1 minute): 8 (5 minute): 9 Delayed Cord Clamping: Yes Post Vaginal Delivery Medications Given After Delivery: - (IM pitocin) Episiotomy Description: None Laceration: None Complication Complications: None
--- NOTE | 2021-05-02 01:50 | PCM.HP.OB ---
HPI - General General Date of Admission: 05/02/21 HPI Narrative ROMY HOLMAN, is a 26 F presenting at 38 2/7wga with c/o painful contractions. issues: -Gestational diabetes - diet controlled -Chronic hypertension - on labetalol prn Maternal Data Information ANDI Calculator Estimated Delivery Date Method Current WG Current Estimate 05/11/21 Ultrasound #1 38w 5d PFSH PFSH Medical History (Updated 05/02/21 @ 01:[address] Kristie Joy MD) Chronic hypertension Home Medications PNV [id number] oil 2 ea PO DAILY 06/12/19 [History Last Taken 05/01/21] labetalol 100 mg PO PRN PRN 06/12/19 [History Last Taken 04/25/21] Allergy/AdvReac Type Severity Reaction Status Date / Time lisinopril Allergy Other Verified 06/12/19 19:45 Surgical History [place] teeth extracted Social History Smoking Status: Never smoker History 2 Elective abortions Hx Para 1 Spontaneous abortions Hx # Term Pregnancies 1 Ectopic pregnancies Hx # Pregnancies Multiple births # of living children 1 Past Pregnancies Del. Date Name GA/Weeks Outcome Route Bth Weight Infant Gen Labor Lgth Anesthesia Del Locatn Provider FOB Unknown [place] 38 live - full term [id number] Female 9 [facility] Isabel Ro [place] NST FHR Rate Baby A Baseline: 135 bpm Vital Signs Vital Signs Vital Signs: 05/02/21 01:37 05/02/21 01:38 05/02/21 01:43 Temperature 97.4 F L Temperature Source Temporal Pulse Rate 82 83 Blood Pressure 147/80 H BP Systolic 147 BP Diastolic 80 Pulse Ox 100 100 Weight Weight: 75.296 kg Body Mass Index (BMI) 29.4 Physical Exam Const alert, oriented x3 and no apparent distress Resp normal respiratory effort Cardio regular rate and regular rhythm GI soft to palpation, non-tender and non-distended Narrative: FD/+3 Extremity no pedal edema Labs Labs Labs: Blood Type O POSITIVE Antibody Screen NEGATIVE Hct 31.2 % (37-47) L Hgb 10.2 g/dL (12.0-15.0) L Syphilis Total Ab Non-reactive Rubella IgG Antibody Reactive (Nonreactive) Hep Bs Antigen Non-Reactive (Nonreactive) Neisseria gonorrhoeae DNA ([facility]) Negative (Negative) HIV 1&2 Antibody Non-Reactive (Nonreactive) C.trachomatis DNA (PCR) Negative (Negative) Glucose 1 Hr 50 gm 146 mg/dL (70-140) H Rhogam given: No Assessment & Plan (1) Gestational diabetes mellitus: QUALIFIERS: Gestational diabetes mellitus control: diet-controlled Trimester: third trimester Qualified Code(s): O24.410 - Gestational diabetes mellitus in , diet controlled PLAN: Check FS (2) 38 weeks gestation of : (3) Chronic hypertension: PLAN: Continue home Labetalol (4) (spontaneous vaginal delivery): PLAN: Patient delivered precipitously Vigorous male infant See delivery note
[2021-05-02 02:24] LABS: Absolute Lymphocyte Count 1.68 X10^3/uL (0.83-4.51); Absolute Neutrophil Count 11.7 X10^3/uL (2.0-7.7); Basophil# 0.04 X10^3/uL; Basophil% 0.3 % (0-1); Eosinophil# 0.04 X10^3/uL; Eosinophils% 0.3 % (0-5); Hematocrit 35.9 % (37-47); Hemoglobin 11.3 g/dL (12.0-15.0); Lymphocyte # 1.68 X10^3/ul (0.83-4.51); Lymphocyte % 11.5 % (19-41); Mean Corp Hgb Conc 31.5 g/dL (32-36); Mean Corpuscular Hgb 25.7 pg (27.0-32.0); Mean Corpuscular Volume 81.8 fL (81-99); Mean Platelet Vol. 10.2 fl (6.2-12.0); Monocyte# 0.98 X10^3/uL; Monocyte% 6.7 % (0-10); NRBC Flagged by Analyzer 0 % (0-5); Neutrophil # 11.68 X10^3/uL (2.7-7.7); Neutrophil % 80.1 % (47-70); Platelet Count 332 K/mm3 (150-450); RBC Distribution Width CV 14.4 % (11.6-14.6); RBC Distribution Width SD 42.2 fl (35.1-43.9); Red Blood Count 4.39 M/mm3 (4.2-5.4); White Blood Count 14.6 K/mm3 (4.4-11.0)
[2021-05-02] MEDS: Ibuprofen 600 MG Tablet PO (03:02)
--- NOTE | 2021-05-02 10:59 | PN.OBGYN_ITS ---
Subjective Subjective No complaints. Doing well. No voiding difficulties. Denies heavy lochia. She is . Objective Data Objective Data Vital Signs: Vital Signs Temp Pulse Resp BP Pulse Ox 98.3 F 74 16 144/83 H 98 05/02/21 08:44 05/02/21 08:51 05/02/21 08:44 05/02/21 08:51 05/02/21 08:51 Oxygen Delivery Method Room Air Weight: 75.296 kg Body Mass Index (BMI) 29.4 Intake & Output: Intake and Output for Last 24 Hours 04/30/21 05/01/21 05/02/21 23:59 23:59 23:59 Output Total 600 / 600 Balance -600 / -600 Lab / Micro Data Result Diagrams: 05/02/21 02:05 Labs: Laboratory Results - last 24 hr 05/02/21 02:05: WBC 14.6 H, RBC 4.39, Hgb 11.3 L, Hct 35.9 L, MCV 81.8, MCH 25.7 L, MCHC 31.5 L, RDW Std Deviation 42.2, RDW Coeff of Sofia 14.4, Plt Count 332, MPV 10.2, Immature Gran % (Auto) 1.100 H, Neut % (Auto) 80.1 H, Lymph % (Auto) 11.5 L, [place] % (Auto) 6.7, Eos % (Auto) 0.3, Baso % (Auto) 0.3, Absolute Neuts (auto) 11.7 H, Absolute Lymphs (auto) 1.68, Nucleated RBC % 0 05/02/21 02:05: Blood Type O POSITIVE, Antibody Screen NEGATIVE Micro: Microbiology 05/02/21 02:06 Nasal Secretion SARS-CoV-2 Antigen (Rapid) - Final Physical Exam Const alert, oriented x3 and no apparent distress Resp normal respiratory effort and normal air movement Cardio regular rate, regular rhythm, S1 normal heart sound and S2 normal heart sound Uterus Palpation: uterus fundus firm and other OB fundus nontender Extremity no calf tenderness Neuro oriented x3 Assessment & Plan (1) (spontaneous vaginal delivery): COMMENT: 05/02/21 PLAN: O positive Routine care (2) Gestational diabetes mellitus: QUALIFIERS: Gestational diabetes mellitus control: diet-controlled Trimester: third trimester Qualified Code(s): O24.410 - Gestational diabetes mellitus in , diet controlled (3) Chronic hypertension: PLAN: Resume Labetalol No sx preeclampsia
[2021-05-02] MEDS: Labetalol 100 MG Tablet PO ×2 (13:20→22:08)
[2021-05-02 17:20] LABS: Bedside Glucose 107 mg/dL (70-110)
[2021-05-02] MEDS: Acetaminophen 500 MG Tablet 1000 MG PO (19:32)
[2021-05-03 06:45] LABS: Bedside Glucose 87 mg/dL (70-110)
[2021-05-03 08:45] VITALS: BP 123/75; PULSE 88; RESP 16; TEMP 36.7; O2SAT 97
[2021-05-03 08:46] VITALS: PULSE 72; O2SAT 97
--- NOTE | 2021-05-03 08:49 | PCM.PN.OB ---
Subjective Subjective No issues overnight. Feels well. Denies headache, vision changes, shortness of breath or chest pain. Denies heavy lochia. Objective Data Objective Data Vital Signs: Vital Signs Temp Pulse Resp BP Pulse Ox 98.0 F 72 16 123/75 H 97 05/03/21 08:45 05/03/21 08:46 05/03/21 08:45 05/03/21 08:45 05/03/21 08:46 Oxygen Delivery Method Room Air Weight: 75.296 kg Body Mass Index (BMI) 29.4 Intake & Output: Intake and Output for Last 24 Hours 05/01/21 05/02/21 05/03/21 23:59 23:59 23:59 Output Total 600 / 600 Balance -600 / -600 Lab / Micro Data Result Diagrams: 05/02/21 02:05 Labs: Laboratory Results - last 24 hr 05/02/21 01:51: POC Glucose 107 05/03/21 06:39: POC Glucose 87 Micro: Microbiology 05/02/21 02:06 Nasal Secretion SARS-CoV-2 Antigen (Rapid) - Final Physical Exam Const alert, oriented x3 and no apparent distress General Appearance: cooperative and comfortable HEENT normocephalic Resp normal respiratory effort and normal air movement Auscultation: clear to auscultation bilaterally Cardio regular rate, regular rhythm, S1 normal heart sound and S2 normal heart sound GI soft to palpation, non-tender and non-distended Uterus Palpation: other OB Fundus firm and nontender Extremity no calf tenderness and no pedal edema General Extremity: edema bilateral Assessment & Plan (1) Chronic hypertension: PLAN: No si/sx worsening Continue Labetalol (2) (spontaneous vaginal delivery): COMMENT: 05/02/21 PLAN: Rh positive Routine care Plan for d/c home today (3) Gestational diabetes mellitus: QUALIFIERS: Gestational diabetes mellitus control: diet-controlled Trimester: third trimester Qualified Code(s): O24.410 - Gestational diabetes mellitus in , diet controlled
--- NOTE | 2021-05-03 08:54 | PCM.DC ---
Discharge Instructions Diet Discharge Diet: No restrictions Activity Discharge Activity: Return to Normal Activity May resume sexual activity in: 4-6 weeks Lifting Restrictions: 20-25 lb Dressing / Incision Call your doctor if you observe: Fever of 101 or Higher, Using more than 1 pad per hour, Shortness of breath, Chest pain, Calf discomfort, Uncontrolled pain and - (Persistent or severe headache, vision changes) Follow Up Care Please Follow Up With: Ahmet Marquez MD When: 1-2 weeks for blood pressure and mood check 6 weeks for visit Test Results: Test results from this visit will be discussed in further detail at your follow-up appointment, if applicable. Discharge Plan Admission Admit Date/Time: 05/02/21 01:05 Primary Reason for Your Visit: Vaginal delivery Attending Provider: Kristie Chapa Primary Care Provider: Ralph Thompson Chi Discharge Orders/Prescriptions Prescriptions: Continued labetalol 100 MG tablet 100 mg PO PRN PRN (Reason: elevated BP) RF: 0 PNV [id number] oil 1 EACH tablet,chewable 2 ea PO DAILY RF: 0 Referrals / Follow Up: Ralph Thompson Chi, MD [Primary Care Provider] - Disposition Disposition (needs filled in before D/C Order can be placed): Home, Self Care
[2021-05-03] MEDS: Labetalol 100 MG Tablet PO (09:59)
--- NOTE | 2021-05-06 14:11 | NURSING ---
At follow up visit with Adele mother feeling well, vaginal bleeding slowing, no symptoms of High BP, states all my nurses were great.
== END 2021-05-03 11:50 | disposition home or self-care (01) | DRG 807 ==
LOC: WPOUT 01:11 → WP 01:11
PROVIDERS: Admitting Provider Obstetrics & Gynecology; PCP Family Medicine Geriatric Medicine; Visit Provider Obstetrics & Gynecology
DX: O10.02 Pre-existing essential hypertension complicating childbirth (principal); Z37.0 Single live birth; O24.420 Gestational diabetes mellitus in childbirth, diet controlled; Z3A.38 38 weeks gestation of pregnancy; O62.3 Precipitate labor
CPT/HCPCS: 59050; 82962; 85025; 86850; 86900; 86901; 87426; 99218; G0378

== ENCOUNTER 2021-06-19 12:32 | Outpatient (CLI) | payer BC, SELFPAY ==
[2021-06-19 16:25] LABS: Glucose 2 Hour Postprandial 135 mg/dL (<140)
== END 2021-06-19 23:59 | disposition home or self-care (01) ==
LOC: WOBLAB 12:33
PROVIDERS: PCP Family Medicine Geriatric Medicine; Visit Provider Obstetrics & Gynecology
DX: O24.419 Gestational diabetes mellitus in pregnancy, unspecified control (principal); Z3A.00 Weeks of gestation of pregnancy not specified
CPT/HCPCS: 36415; 82950

== ENCOUNTER → 2022-08-17 | Outpatient (CLI) | payer BC, SELFPAY ==
[2022-08-17 17:45] LABS: Absolute Neutrophil Count 5.5 X10^3/uL (2.0-7.7); Basophil# 0.05 X10^3/uL; Basophil% 0.5 % (0-1); Eosinophils% 1.1 % (0-5); Hematocrit 40.7 % (37-47); Hemoglobin 13.2 g/dL (12.0-15.0); Lymphocyte % 31.7 % (19-41); Mean Corp Hgb Conc 32.4 g/dL (32-36); Mean Corpuscular Volume 89.5 fL (81-99); Mean Platelet Vol. 9.8 fl (6.2-12.0); Monocyte# 0.79 X10^3/uL; Monocyte% 8.3 % (0-10); NRBC Flagged by Analyzer 0 % (0-5); Neutrophil # 5.51 X10^3/uL (2.7-7.7); Neutrophil % 58.2 % (47-70); Platelet Count 390 K/mm3 (150-450); RBC Distribution Width CV 12.7 % (11.6-14.6); RBC Distribution Width SD 41.7 fl (35.1-43.9); Red Blood Count 4.55 M/mm3 (4.2-5.4); White Blood Count 9.5 K/mm3 (4.4-11.0)
[2022-08-17 18:33] LABS: ALB/GLOB Ratio 0.8 RATIO (0.9-2.4); AST(SGOT) 24 U/L (15-37); Alanine Aminotransfer ALT/SGPT 26 U/L (13-56); Alkaline Phosphatase 79 U/L (45-117); Anion Gap 8 (5-15); BUN 15 mg/dL (7-18); BUN/Creat Ratio 19.4 RATIO (10-20); Calcium,Total 9.1 mg/dL (8.5-10.1); Chloride 105 mmol/L (98-107); Creatinine, Serum 0.77 mg/dL (0.55-1.02); EST Glomerular Filtration Rate 94 mL/min (>60); Est Glom Filt Rate - Afr Amer 114 mL/min (>60); Globulin 4.8 g/dL (2.2-4.2); Glucose 85 mg/dL (74-106); Potassium 3.4 mmol/L (3.5-5.1); Protein, Total 8.8 g/dL (6.4-8.2); Sodium Level 138 mmol/L (136-145); Thyroid Stim Hormone (TSH) 0.89 uIU/mL (0.358-3.74)
== END | disposition home or self-care (01) ==
LOC: POLAB3 10:40
PROVIDERS: PCP Family Medicine Geriatric Medicine; Visit Provider Family Medicine Geriatric Medicine
DX: R53.83 Other fatigue (principal)
CPT/HCPCS: 36415; 80053; 84443; 85025

== ENCOUNTER → 2022-08-19 | Outpatient (CLI) | payer BC, SELFPAY ==
[2022-08-20 16:09] LABS: PROEL- A/G Ratio 1.1 (0.7-1.7); PROEL- Albumin 4.3 g/dL (2.9-4.4); PROEL- Alpha-1 Globulin 0.2 g/dL (0.0-0.4); PROEL- Alpha-2 Globulin 0.9 g/dL (0.4-1.0); PROEL- Beta Globulin 1.3 g/dL (0.7-1.3); PROEL- Gamma Globulin 1.4 g/dL (0.4-1.8); PROEL- Globulin, Total 3.9 g/dL (2.2-3.9); PROEL- TOTAL PROTEIN 8.2 g/dL (6.0-8.5)
[2022-08-23 15:08] LABS: PROELU- Albumin, Urine 34.8 % (.); PROELU- Alpha-1-Globulin,Ur 4.4 % (.); PROELU- Alpha-2-Globulin,Ur 22.9 % (.); PROELU- Beta Globulin, Ur 25.6 % (.); PROELU- Gamma Globulin, Ur 12.3 % (.); Total Protein, Ur 7.4 mg/dL (Not Estab.)
== END | disposition home or self-care (01) ==
LOC: POLAB3 11:11
PROVIDERS: PCP Family Medicine Geriatric Medicine; Visit Provider Family Medicine Geriatric Medicine
DX: Z01.89 Encounter for other specified special examinations (principal); E87.1 Hypo-osmolality and hyponatremia
CPT/HCPCS: 36415; 84165; 84166

== ENCOUNTER → 2022-08-26 | Outpatient (CLI) | payer BC, SELFPAY ==
[2022-08-26 13:41] LABS: Anion Gap 7 (5-15); BUN 18 mg/dL (7-18); BUN/Creat Ratio 22.2 RATIO (10-20); Calcium,Total 9.5 mg/dL (8.5-10.1); Chloride 105 mmol/L (98-107); Creatinine, Serum 0.81 mg/dL (0.55-1.02); EST Glomerular Filtration Rate 89 mL/min (>60); Est Glom Filt Rate - Afr Amer 108 mL/min (>60); Glucose 104 mg/dL (74-106); Potassium 3.8 mmol/L (3.5-5.1); Sodium Level 137 mmol/L (136-145)
== END | disposition home or self-care (01) ==
LOC: POLAB3 10:45
PROVIDERS: PCP Family Medicine Geriatric Medicine; Visit Provider Family Medicine Geriatric Medicine
DX: E87.6 Hypokalemia (principal)
CPT/HCPCS: 36415; 80048

== ENCOUNTER → 2023-03-09 | Outpatient (CLI) | payer BC, SELFPAY | END | disposition home or self-care (01) | LOC: PSN 09:35 | PROVIDERS: PCP Family Medicine Geriatric Medicine; Referring Provider Family Medicine Geriatric Medicine; Visit Provider Family Medicine Geriatric Medicine | DX: R68.83 Chills (without fever) (principal) | CPT/HCPCS: 87635; 87804; 87807; C9803 ==

== ENCOUNTER → 2023-08-25 | Outpatient (CLI) | payer BC, SELFPAY ==
[2023-08-25 17:47] LABS: Absolute Lymphocyte Count 2.06 X10^3/uL (0.83-4.51); Basophil# 0.03 X10^3/uL; Basophil% 0.4 % (0-1); Eosinophils% 1.3 % (0-5); Hematocrit 39.3 % (37-47); Hemoglobin 12.8 g/dL (12.0-15.0); Lymphocyte # 2.06 X10^3/ul (0.83-4.51); Mean Corp Hgb Conc 32.6 g/dL (32-36); Mean Corpuscular Hgb 29.1 pg (27.0-32.0); Mean Corpuscular Volume 89.3 fL (81-99); Mean Platelet Vol. 9.3 fl (6.2-12.0); Monocyte# 0.72 X10^3/uL; Monocyte% 9.1 % (0-10); NRBC Flagged by Analyzer 0 % (0-5); Neutrophil # 4.98 X10^3/uL (2.7-7.7); Neutrophil % 62.7 % (47-70); Platelet Count 358 K/mm3 (150-450); RBC Distribution Width CV 12.9 % (11.6-14.6); RBC Distribution Width SD 42.3 fl (35.1-43.9); White Blood Count 7.9 K/mm3 (4.4-11.0)
[2023-08-25 17:48] LABS: POSITIVE COUNT NO; POSITIVE DIFFERENTIAL NO; POSITIVE MORPHOLOGY NO
[2023-08-25 18:58] LABS: ALB/GLOB Ratio 0.9 RATIO (0.9-2.4); AST(SGOT) 17 U/L (15-37); Alanine Aminotransfer ALT/SGPT 15 U/L (13-56); Albumin, Serum 3.8 g/dL (3.2-5.0); Alkaline Phosphatase 63 U/L (45-117); Anion Gap 7 (5-15); BUN 16 mg/dL (7-18); BUN/Creat Ratio 19.7 RATIO (10-20); Calcium,Total 9.1 mg/dL (8.5-10.1); Chloride 104 mmol/L (98-107); Creatinine, Serum 0.81 mg/dL (0.55-1.02); EST Glomerular Filtration Rate 88 mL/min (>60); Est Glom Filt Rate - Afr Amer 107 mL/min (>60); Globulin 4.4 g/dL (2.2-4.2); Glucose 90 mg/dL (74-106); Potassium 3.5 mmol/L (3.5-5.1); Protein, Total 8.2 g/dL (6.4-8.2); Sodium Level 137 mmol/L (136-145); Thyroid Stim Hormone (TSH) 0.98 uIU/mL (0.358-3.74)
== END | disposition home or self-care (01) ==
LOC: LAB 16:48
PROVIDERS: PCP Family Medicine Geriatric Medicine; Referring Provider Family Medicine Geriatric Medicine; Visit Provider Family Medicine Geriatric Medicine
DX: I10 Essential (primary) hypertension (principal)
CPT/HCPCS: 36415; 80053; 84443; 85025

== ENCOUNTER → 2025-03-22 | Outpatient (CLI) | payer BC, SELFPAY ==
--- NOTE | 2025-03-22 11:03 | US_ITS ---
PROCEDURE: THYROID, 03/22/2025 REASON FOR EXAM: NODULE TECHNIQUE: Grayscale and color Doppler imaging of the thyroid was performed. COMPARISON: None FINDINGS: Right lobe measures 5.2 x 1.5 x 1.4 3cm. Essentially homogeneous background echotexture. No abnormal vascularity. 3 mm cyst is not suspicious. No solid or mostly solid nodules are identified. Left lobe measures 4.9 x 1.4 x 1.1 cm. Essentially homogeneous background echotexture. No abnormal vascularity. 3 mm cyst is not suspicious. Nodules as below: *4 x 4 x 2 mm, mixed cystic and solid, hypoechoic solid components, TI-RADS 3, no follow-up. Isthmus measures 1 mm in thickness. US/Thyroid IMPRESSION: 1. Assessment is TI-RADS 3. No nodules currently meet criteria for FNA or follo w-up as per the below. 2. Otherwise essentially homogeneous gland of normal-size. Management recommendations for TI-RADS 2 findings: Not Suspicious: No FNA. Clin cial follow-up recommended. Management recommendations for TI-RADS 3 findings: FNA if = 2.5 cm; Follow if = 1.5 cm at 1, 3, and 5 years. Management recommendations for TI-RADS 4 findings: FNA if = 1.5 cm; Follow if = 1 cm at 1, 2, 3, and 5 years. Management recommendations for TI-RADS 5 findings: FNA if = 1 cm; Follow if = 0 .5 cm annually until 5 years. Recommendations per ACR Thyroid Imaging, Reporting and Data System (TI-RADS): Oanh gaspar Paper of the ACR TI-RADS Committee, 2017 ([email or web address]/[email or web address]) Reading Location: [id number]
== END | disposition home or self-care (01) ==
LOC: US 11:02
PROVIDERS: PCP Family Medicine Geriatric Medicine; Referring Provider Family Medicine Geriatric Medicine; Visit Provider Family Medicine Geriatric Medicine
DX: E04.1 Nontoxic single thyroid nodule (principal)
CPT/HCPCS: 76536